=== PATIENT | male | born 1975 | race Caucasian/White ===

== ENCOUNTER 2019-05-24 03:06 | Inpatient (IN) ==
[2019-05-24 06:48] LABS: Apearance,Urine CLEAR (Clear); Bilirubin,Urine Negative (Negative); Blood, Urine Negative (Negative); Glucose,Urine (UA) Negative (Negative); Ketones,Urine Negative (Negative); Nitrite,Urine Negative (Negative); Protein,Urine Negative; RBC,Urine 1 /HPF (0-4); Urine Color Yellow (Yellow); Urine Specific Gravity 1.014 (1.001-1.035); Urine Urobilinogen < 2.0 EU/DL (0.2-1.0); WBC,Urine <1 /HPF (0-6)
[2019-05-24 06:54] LABS: Basophils # 0.1 10*3/uL (0.0-0.2); Basophils % 1.1 % (0.0-0.8); Eosinophils # 0.5 10*3/uL (0.0-0.87); Eosinophils % 3.6 % (0.00-10.9); Hematocrit 46.7 VOL% (42.0-52.0); Hemoglobin 15.9 GM/DL (14.0-18.0); Immature Granulocytes % 0.5 %; Immature Granulocytes Absolute 0.06 #; Lymphocytes % 15.7 % (21.2-54.2); Mean Corpuscular Volume 106.6 FL (87-102); Mean Platelet Volume 9.7 FL (9.6-12.0); Monocytes % 8.7 % (1.7-12.7); Neutrophils % 70.4 % (38.7-73.9); Platelet Count 334 T/CUMM (130-400); Red Blood Count 4.38 MC/CUMM (3.8-5.5); Red Cell Distribution Width 15.9 % (9.3-17.3); White Blood Count 12.5 T/CUMM (4-12)
[2019-05-24 06:56] LABS: Bilirubin,Total 0.6 MG/DL (0.2-1.0); Calcium 8.9 MG/DL (8.5-10.1); Osmolality,Calculated 271.8 MOS/KG (273-304); Total Protein 7.2 G/DL (6.4-8.3)
[2019-05-24] MEDS ORDERED: ONDANSETRON 4 MG/2 ML VIAL IV ONE (06:59)
[2019-05-24] MEDS ORDERED: MORPHINE 4 MG/1 ML VIAL IV STA (06:59)
[2019-05-24] MEDS ORDERED: CLINDAMYCIN INJ 600 MG in PREMIX 1 EACH IV STA (08:45)
[2019-05-24] MEDS ORDERED: ONDANSETRON 4 MG/2 ML VIAL IV PRN (09:49)
[2019-05-24] MEDS ORDERED: ACETAMINOPHEN 325 MG TABLET PO PRN (09:49)
[2019-05-24 10:11] LABS: Apearance,Urine CLEAR (Clear); Bacteria,Urine Occasional /HPF (Few); Bilirubin,Urine Negative (Negative); Blood, Urine Negative (Negative); Glucose,Urine (UA) Negative (Negative); Ketones,Urine Negative (Negative); Nitrite,Urine Negative (Negative); Protein,Urine Negative; RBC,Urine 2 /HPF (0-4); Squamous Epithelial Cell,Urine Occasional /HPF (0-10); Urine Color Yellow (Yellow); Urine Specific Gravity 1.015 (1.001-1.035); Urine Urobilinogen < 2.0 EU/DL (0.2-1.0); WBC,Urine <1 /HPF (0-6)
[2019-05-24 10:30] LABS: Barbiturates Screen,Urine Negative (Negative); Benzodiazepines Screen,Urine Negative (Negative); Cannabinoid Screen,Urine Negative (Negative); Opiate Screen,Urine Positive (Negative); Phencyclidine Screen,Urine Negative (Negative)
[2019-05-24] MEDS ORDERED: LORazepam 1 MG TABLET PO PRN (11:08)
[2019-05-24] MEDS: MORPHINE 4 MG/1 ML VIAL IV PRN ×3 (11:40→20:56)
[2019-05-24] MEDS: SODIUM CHLORIDE 0.9% 1,000 ML IV SCH (11:42)
[2019-05-24] MEDS: MULTIVITAMIN (CENTRUM) TABLET PO SCH (13:17)
[2019-05-24] MEDS: LOSARTAN 50 MG TABLET PO SCH (13:17)
[2019-05-24] MEDS: amLODIPine 10 MG TABLET PO SCH (13:17)
[2019-05-24] MEDS: PIPERACILLIN/TAZOBACTAM 3,375 MG in SODIUM CHLORIDE 0.9% 100 ML IV SCH ×2 (13:18→21:02)
[2019-05-24] MEDS: FOLIC ACID 1 MG TABLET PO SCH (13:18)
[2019-05-24] MEDS: THIAMINE 100 MG TABLET PO SCH (13:18)
[2019-05-24] MEDS: NICOTINE 21 MG/24 HR PATCH TRANSDERM SCH (13:18)
[2019-05-24] MEDS: cloNIDine 0.1 MG TABLET PO SCH ×2 (15:18→20:59)
[2019-05-25] MEDS: SODIUM CHLORIDE 0.9% 1,000 ML IV SCH ×2 (00:23→13:51)
[2019-05-25 05:28] LABS: Basophils # 0.2 10*3/uL (0.0-0.2); Basophils % 1.5 % (0.0-0.8); Eosinophils # 0.8 10*3/uL (0.0-0.87); Eosinophils % 7.1 % (0.00-10.9); Hematocrit 44.7 VOL% (42.0-52.0); Hemoglobin 14.8 GM/DL (14.0-18.0); Immature Granulocytes % 0.5 %; Immature Granulocytes Absolute 0.05 #; Lymphocytes # 1.8 10*3/uL (1.4-4.0); Lymphocytes % 17.2 % (21.2-54.2); Mean Corpuscular HGB Conc 33.1 GM/DL (32-36); Mean Platelet Volume 9.9 FL (9.6-12.0); Monocytes % 10.2 % (1.7-12.7); Neutrophils % 63.5 % (38.7-73.9); Platelet Count 307 T/CUMM (130-400); Red Blood Count 4.14 MC/CUMM (3.8-5.5); Red Cell Distribution Width 15.9 % (9.3-17.3); White Blood Count 10.7 T/CUMM (4-12)
[2019-05-25] MEDS: PIPERACILLIN/TAZOBACTAM 3,375 MG in SODIUM CHLORIDE 0.9% 100 ML IV SCH ×3 (05:29→21:48)
[2019-05-25 05:40] LABS: Risk Ratio 3.59; VLDL CHOLESTEROL 26.2 MG/DL
[2019-05-25 05:46] LABS: Calcium 8.6 MG/DL (8.5-10.1); Osmolality,Calculated 273.5 MOS/KG (273-304); Thyroid Stimulating Hormone 1.53 uIU/ml (0.358-3.74)
[2019-05-25 05:46] LABS: Folate 11.6 NG/ML (5.4-24.0)
[2019-05-25] MEDS ORDERED: POTASSIUM CHLORIDE RIDER 10 MEQ in PREMIX 1 EACH IV PRN (06:30)
[2019-05-25] MEDS: amLODIPine 10 MG TABLET PO SCH (08:06)
[2019-05-25] MEDS: cloNIDine 0.1 MG TABLET PO SCH ×4 (08:06→21:42)
[2019-05-25] MEDS: PANTOPRAZOLE 40 MG TABLET PO SCH (08:06)
[2019-05-25] MEDS: LOSARTAN 50 MG TABLET PO SCH (08:06)
[2019-05-25] MEDS: THIAMINE 100 MG TABLET PO SCH (08:06)
[2019-05-25] MEDS: FOLIC ACID 1 MG TABLET PO SCH (08:06)
[2019-05-25] MEDS: MULTIVITAMIN (CENTRUM) TABLET PO SCH (08:06)
[2019-05-25] MEDS: NICOTINE 21 MG/24 HR PATCH TRANSDERM SCH (08:07)
[2019-05-25] MEDS ORDERED: MAGNESIUM SULF RIDER 4 GM in PREMIX 1 EACH IV PRN (12:17)
[2019-05-25] MEDS ORDERED: MAGNESIUM SULF RIDER 2 GM in PREMIX 1 EACH IV PRN (12:17)
[2019-05-25] MEDS: POTASSIUM CHLORIDE 20 MEQ TABLET PO PRN ×3 (13:49→21:51)
[2019-05-26] MEDS: PIPERACILLIN/TAZOBACTAM 3,375 MG in SODIUM CHLORIDE 0.9% 100 ML IV SCH ×2 (04:16→14:44)
[2019-05-26] MEDS: SODIUM CHLORIDE 0.9% 1,000 ML IV SCH (04:44)
[2019-05-26 05:20] LABS: Basophils # 0.2 10*3/uL (0.0-0.2); Basophils % 1.8 % (0.0-0.8); Eosinophils # 0.7 10*3/uL (0.0-0.87); Eosinophils % 7.7 % (0.00-10.9); Hemoglobin 14.1 GM/DL (14.0-18.0); Immature Granulocytes % 0.4 %; Immature Granulocytes Absolute 0.04 #; Lymphocytes # 2.3 10*3/uL (1.4-4.0); Lymphocytes % 24.3 % (21.2-54.2); Mean Corpuscular HGB Conc 32.8 GM/DL (32-36); Mean Platelet Volume 10.1 FL (9.6-12.0); Monocytes % 11.1 % (1.7-12.7); Neutrophils % 54.7 % (38.7-73.9); Platelet Count 309 T/CUMM (130-400); Red Blood Count 3.91 MC/CUMM (3.8-5.5); Red Cell Distribution Width 15.7 % (9.3-17.3); White Blood Count 9.6 T/CUMM (4-12)
[2019-05-26 05:53] LABS: Calcium 9.1 MG/DL (8.5-10.1); Osmolality,Calculated 277.4 MOS/KG (273-304)
[2019-05-26] MEDS: NICOTINE 21 MG/24 HR PATCH TRANSDERM SCH (08:21)
[2019-05-26] MEDS: FOLIC ACID 1 MG TABLET PO SCH (08:21)
[2019-05-26] MEDS: cloNIDine 0.1 MG TABLET PO SCH ×2 (08:21→14:44)
[2019-05-26] MEDS: LOSARTAN 50 MG TABLET PO SCH (08:22)
[2019-05-26] MEDS: MULTIVITAMIN (CENTRUM) TABLET PO SCH (08:22)
[2019-05-26] MEDS: amLODIPine 10 MG TABLET PO SCH (08:22)
[2019-05-26] MEDS: PANTOPRAZOLE 40 MG TABLET PO SCH (08:22)
[2019-05-26] MEDS: THIAMINE 100 MG TABLET PO SCH (08:22)
[2019-05-26 11:55] VITALS: BP 145/76
== END 2019-05-26 14:54 | disposition home or self-care (01) | DRG 439 ==
LOC: N.ED 03:06 → N.5E 09:49 → SUATTDRO 09:49 → N.5E 10:22
PROVIDERS: ADMIT Internal Medicine Nephrology; ATTEND Internal Medicine

== ENCOUNTER 2021-01-15 18:13 | Inpatient (IN) ==
[2021-01-15 19:04] LABS: Troponin I < 0.015 NG/ML (0.00-0.045)
[2021-01-15] MEDS ORDERED: SODIUM CHLORIDE 0.9% 1,000 ML IV STA (21:13)
[2021-01-15] MEDS ORDERED: MORPHINE 4 MG/1 ML VIAL IV ONE (21:13)
[2021-01-15] MEDS ORDERED: ONDANSETRON 4 MG/2 ML VIAL IV STA (21:13)
[2021-01-15 21:25] LABS: Basophils # 0.2 10*3/uL (0.0-0.2); Basophils % 0.8 % (0.0-0.8); Eosinophils # 0.3 10*3/uL (0.0-0.87); Eosinophils % 1.6 % (0.00-10.9); Hematocrit 46.5 VOL% (42.0-52.0); Immature Granulocytes % 0.6 %; Immature Granulocytes Absolute 0.11 #; Lymphocytes # 1.8 10*3/uL (1.4-4.0); Lymphocytes % 8.9 % (21.2-54.2); Mean Corpuscular HGB Conc 34.4 GM/DL (32-36); Mean Corpuscular Volume 105.4 FL (87-102); Mean Platelet Volume 10.1 FL (9.6-12.0); Neutrophils % 80.1 % (38.7-73.9); Platelet Count 404 T/CUMM (130-400); Red Blood Count 4.41 MC/CUMM (3.8-5.5); Red Cell Distribution Width 13.2 % (9.3-17.3); White Blood Count 19.7 T/CUMM (4-12)
[2021-01-15 21:33] LABS: INR 1.1; PT Patient Result 11.6 SECS (9.8-11.9); Partial Thromboplastin Time 35.7 SECS (23.9-33.8)
[2021-01-15 21:38] LABS: Alanine Aminotransferase 44 U/L (16-61); Albumin 4.1 G/DL (3.4-5.0); Alkaline Phosphatase 108 U/L (45-117); Amylase 252 U/L (25-115); Aspartate Amino Transferase 44 U/L (0-37); Blood Urea Nitrogen 8 MG/DL (7-18); Calcium 9.5 MG/DL (8.5-10.1); Carbon Dioxide 24 MMOL/L (21-32); Estimated Glom Filtration Rate 85 ML/MIN; Glucose 118 MG/DL (74-106); Osmolality,Calculated 271.8 MOS/KG (273-304); Potassium 3.7 MMOL/L (3.5-5.1); Sodium 137 MMOL/L (136-145); Total Protein 8.3 G/DL (5.0-7.5)
[2021-01-15] MEDS ORDERED: MORPHINE 4 MG/1 ML VIAL IV PRN (23:10)
[2021-01-15] MEDS ORDERED: GLUCAGON 1 MG VIAL IM PRN (23:10)
[2021-01-15] MEDS ORDERED: MAGNESIUM SULF RIDER 2 GM in PREMIX 1 EACH IV ONE (23:10)
[2021-01-15] MEDS ORDERED: DEXTROSE 50% 25 GM/50 ML VIAL IV PRN (23:10)
[2021-01-15] MEDS ORDERED: LORazepam 2 MG/1 ML VIAL IV PRN (23:13)
[2021-01-15] MEDS ORDERED: ENOXAPARIN 40 MG/0.4 ML SYRINGE SUBCUT SCH (23:30)
[2021-01-15] MEDS ORDERED: HYDROmorphone 2 MG/1 ML VIAL IV STA (23:44)
[2021-01-15] MEDS ORDERED: HydrOXYzine PAMOATE 25 MG CAPSULE PO PRN (23:45)
[2021-01-15] MEDS ORDERED: DICYCLOMINE 10 MG CAPSULE PO PRN (23:45)
[2021-01-15] MEDS ORDERED: METHOCARBAMOL 500 MG TABLET PO PRN (23:45)
[2021-01-16] MEDS: SODIUM CHLORIDE 0.9% 1,000 ML IV SCH ×4 (00:28→20:20)
[2021-01-16] MEDS: chlordiazePOXIDE 25 MG CAPSULE PO SCH ×4 (02:00→20:19)
[2021-01-16] MEDS: HYDROmorphone 2 MG/1 ML VIAL IV PRN ×6 (05:10→23:20)
[2021-01-16 06:35] LABS: Basophils # 0.1 10*3/uL (0.0-0.2); Eosinophils # 0.5 10*3/uL (0.0-0.87); Eosinophils % 4.2 % (0.00-10.9); Immature Granulocytes % 0.3 %; Immature Granulocytes Absolute 0.04 #; Lymphocytes # 1.4 10*3/uL (1.4-4.0); Lymphocytes % 12.3 % (21.2-54.2); Mean Corpuscular HGB Conc 34.1 GM/DL (32-36); Mean Corpuscular Volume 106.8 FL (87-102); Mean Platelet Volume 9.3 FL (9.6-12.0); Monocytes % 10.7 % (1.7-12.7); Neutrophils % 71.5 % (38.7-73.9); Platelet Count 335 T/CUMM (130-400); Red Blood Count 4.12 MC/CUMM (3.8-5.5); Red Cell Distribution Width 13.2 % (9.3-17.3); White Blood Count 11.6 T/CUMM (4-12)
[2021-01-16 09:18] LABS: Albumin 3.4 G/DL (3.4-5.0); Bilirubin,Total 0.6 MG/DL (0.2-1.0); Calcium 9.1 MG/DL (8.5-10.1); Osmolality,Calculated 268.1 MOS/KG (273-304); Total Protein 7.7 G/DL (5.0-7.5)
[2021-01-16] MEDS: MULTIVITAMIN (CENTRUM) TABLET PO SCH (10:00)
[2021-01-16] MEDS: FOLIC ACID 1 MG TABLET PO SCH (10:00)
[2021-01-16] MEDS: THIAMINE 100 MG TABLET PO SCH (10:00)
[2021-01-16] MEDS ORDERED: hydrALAZINE 20 MG/1 ML VIAL IV PRN (15:50)
[2021-01-16] MEDS ORDERED: NICOTINE 21 MG/24 HR PATCH TRANSDERM PRN (15:53)
[2021-01-16 16:05] LABS: Basophils # 0.1 10*3/uL (0.0-0.2); Eosinophils # 0.4 10*3/uL (0.0-0.87); Eosinophils % 3.3 % (0.00-10.9); Hematocrit 43.8 VOL% (42.0-52.0); Hemoglobin 14.4 GM/DL (14.0-18.0); Immature Granulocytes % 0.4 %; Immature Granulocytes Absolute 0.04 #; Lymphocytes # 1.3 10*3/uL (1.4-4.0); Lymphocytes % 11.3 % (21.2-54.2); Mean Corpuscular HGB Conc 32.9 GM/DL (32-36); Mean Corpuscular Volume 110.1 FL (87-102); Mean Platelet Volume 9.2 FL (9.6-12.0); Platelet Count 310 T/CUMM (130-400); Red Blood Count 3.98 MC/CUMM (3.8-5.5); Red Cell Distribution Width 13.2 % (9.3-17.3); White Blood Count 11.2 T/CUMM (4-12)
[2021-01-16] MEDS: PANTOPRAZOLE 40 MG VIAL IV SCH (16:20)
[2021-01-16 19:30] LABS: Albumin 3.5 G/DL (3.4-5.0); Bilirubin,Total 0.6 MG/DL (0.2-1.0); Calcium 8.7 MG/DL (8.5-10.1); Osmolality,Calculated 267.1 MOS/KG (273-304); Total Protein 7.7 G/DL (5.0-7.5)
[2021-01-17] MEDS: HYDROmorphone 2 MG/1 ML VIAL IV PRN (02:06)
[2021-01-17] MEDS: chlordiazePOXIDE 25 MG CAPSULE PO SCH ×3 (02:14→17:47)
[2021-01-17] MEDS: SODIUM CHLORIDE 0.9% 1,000 ML IV SCH ×4 (03:58→21:28)
[2021-01-17 05:40] LABS: Risk Ratio 4.44
[2021-01-17] MEDS: FOLIC ACID 1 MG TABLET PO SCH (09:30)
[2021-01-17] MEDS: PANTOPRAZOLE 40 MG VIAL IV SCH (09:30)
[2021-01-17] MEDS: MULTIVITAMIN (CENTRUM) TABLET PO SCH (09:30)
[2021-01-17] MEDS: THIAMINE 100 MG TABLET PO SCH (09:30)
[2021-01-17 19:44] LABS: Cancer Antigen 19-9 6.5 U/ML (0-35); Carcinoembryonic Antigen 4.4 NG/ML (0.0-5.0)
[2021-01-18] MEDS: HYDROmorphone 2 MG/1 ML VIAL IV PRN (00:07)
[2021-01-18] MEDS: chlordiazePOXIDE 25 MG CAPSULE PO SCH ×2 (01:20→10:02)
[2021-01-18] MEDS: SODIUM CHLORIDE 0.9% 1,000 ML IV SCH ×2 (06:32→08:00)
[2021-01-18 06:50] LABS: Basophils # 0.1 10*3/uL (0.0-0.2); Basophils % 1.1 % (0.0-0.8); Eosinophils # 0.3 10*3/uL (0.0-0.87); Eosinophils % 3.7 % (0.00-10.9); Hematocrit 39.4 VOL% (42.0-52.0); Hemoglobin 13.1 GM/DL (14.0-18.0); Immature Granulocytes % 0.4 %; Immature Granulocytes Absolute 0.04 #; Lymphocytes # 2.2 10*3/uL (1.4-4.0); Mean Corpuscular HGB Conc 33.2 GM/DL (32-36); Mean Corpuscular Volume 109.4 FL (87-102); Monocytes % 9.2 % (1.7-12.7); Neutrophils % 61.6 % (38.7-73.9); Platelet Count 296 T/CUMM (130-400)
[2021-01-18 07:17] LABS: Alanine Aminotransferase 28 U/L (16-61); Albumin 2.9 G/DL (3.4-5.0); Alkaline Phosphatase 94 U/L (45-117); Aspartate Amino Transferase 18 U/L (0-37); Bilirubin,Total < 0.39 MG/DL (0.2-1.0); Blood Urea Nitrogen 6 MG/DL (7-18); Calcium 8.5 MG/DL (8.5-10.1); Carbon Dioxide 24 MMOL/L (21-32); Estimated Glom Filtration Rate 131 ML/MIN; Glucose 97 MG/DL (74-106); Osmolality,Calculated 276.4 MOS/KG (273-304); Potassium 3.7 MMOL/L (3.5-5.1); Sodium 140 MMOL/L (136-145); Total Protein 7.2 G/DL (5.0-7.5)
[2021-01-18] MEDS: MULTIVITAMIN (CENTRUM) TABLET PO SCH (09:55)
[2021-01-18] MEDS: THIAMINE 100 MG TABLET PO SCH (09:56)
[2021-01-18] MEDS: FOLIC ACID 1 MG TABLET PO SCH (09:56)
[2021-01-18] MEDS: PANTOPRAZOLE 40 MG VIAL IV SCH (09:57)
[2021-01-18 12:26] VITALS: BP 125/83
== END 2021-01-18 14:20 | disposition left against medical advice (07) | DRG 440 ==
LOC: N.ED 18:13 → N.EDINP 23:10 → N.TELES 01-16 14:19
PROVIDERS: ADMIT Internal Medicine; ATTEND Internal Medicine